=== PATIENT | female | born 1975 | race African-American/Black ===

== ENCOUNTER 2020-09-03 06:00 | Emergency (ER) | payer MEDICAID ==
[~2020-09-03] VITALS: Ht 165.1 cm; Wt 56.4 kg
--- NOTE | 2020-09-03 06:10 | NUR ---
INITIAL PT CONTACT. PT PRESENTS TO ED C/O "A LOT OF THINGS" BODY FEELS SWOLLEN AFTER WORKING AND THE FIRST 2 HOURS WAKING UP IN THE MORNING, I'M TAKING DEPO AND BEEN SPOTTING FOR ABOUT X3WKS, WHICH IS NOT NORMAL." PT ALSO C/O INCREASED FREQUECY AND URGENCY WITH URINATION AND BACK PAIN, "HONESTLY I THINK IT COULD BE A UTI." PT SITTING UPRIGHT ON RADHA FINCH, VSS. PT PROVIDED WARM BLANKET, NO ADDITIONAL NEEDS AT THIS TIME. AWAITING ERP.
--- NOTE | 2020-09-03 06:32 | NUR ---
ERP AT BEDSIDE
[2020-09-03 06:44] LABS: HCG UR SG 1.025 (1.003-1.030)
[2020-09-03 06:45] LABS: MICROSCOPIC INDICATED
--- NOTE | 2020-09-03 06:50 | NUR ---
REPORT TO GERA LEON
--- NOTE | 2020-09-03 06:52 | NUR ---
BEDSIDE REPORT RECIEVED FROM EDWARD GRAY FOR TRANSFER OF PATIENT CARE.
[2020-09-03 07:06] LABS: ANION GAP 4 mmol/L (5-15); CALCIUM 8.5 mg/dL (8.5-10.1); CHLORIDE 114 mmol/L (98-107); CREATININE 0.85 mg/dL (0.55-1.02)
--- NOTE | 2020-09-03 07:14 | NUR ---
PATIENT RESTING IN RNEY WATCHING TV, NADN, VSS, CALL LIGHT WITHIN REACH. NO FURTHER NEEDS AT THIS TIME. WAITING FOR LAB RESULTS.
[2020-09-03 07:23] LABS: BASOPHILS % (AUTO) 1 % (0-1); EOSINOPHILS % (AUTO) 2 % (1-7); LYMPHOCYTES % (AUTO) 32 % (22-44); MEAN CORPUSCULAR HGB CONC 32.5 g/dL (32.4-35.8); MEAN PLATELET VOLUME 8.6 fL (7.4-10.4); MONOCYTES % (AUTO) 4 % (2-9); NEUTROPHILS % (AUTO) 62 % (42-75); PLATELET COUNT 212 x10^3/uL (130-400); RED BLOOD COUNT 4.58 x10^6/uL (3.82-5.3); RED CELL DISTRIBUTION WIDTH 15.5 % (9.6-15.2)
[2020-09-03 07:45] LABS: MD NO
[2020-09-03 07:53] VITALS: BP 111/67
--- NOTE | 2020-09-03 08:11 | NUR ---
Patient given discharge instructions and they have confirmed that they understand the instructions. Patient stable and ambulatory with steady gait from ED to private vehicle.
== END 2020-09-03 08:12 | disposition home or self-care (01) ==
LOC: ED 07:24
DX: R53.1 Weakness (principal); M54.5 Low back pain
CPT/HCPCS: 36415; 80048; 81001; 81025; 85025; 99283

== ENCOUNTER 2020-12-04 10:39 | Emergency (ER) | payer MEDICAID ==
[~2020-12-04] VITALS: Ht 165.1 cm; Wt 57.2 kg
[2020-12-04 10:43] VITALS: BP 124/78
== END 2020-12-04 11:09 | disposition home or self-care (01) ==
LOC: ED 10:57
DX: J00 Acute nasopharyngitis [common cold] (principal); Z20.822 Contact with and (suspected) exposure to COVID-19
CPT/HCPCS: 99283; U0003; U0005